=== PATIENT | male | born 1975 | race Caucasian/White ===

== ENCOUNTER 2022-10-14 13:41 | Emergency (ER) | payer MEDICAID, SELFPAY ==
[2022-10-14 13:45] VITALS: BMI 32.3
[2022-10-14 13:49] VITALS: BP 131/105; PULSE 120; RESP 20; TEMP 37.2; O2SAT 98
--- NOTE | 2022-10-14 13:53 | W.ED.PSYCHS ---
HPI - Psych General: Chief Complaint: Psychiatric Symptoms Stated Complaint: SI Time Seen by Provider: 10/14/22 13:53 History of Present Illness: Mr. Morris is a 46-year-old gentleman with reported history of bipolar disorder, anxiety, PTSD presenting to the emergency department for psychiatric evaluation. Apparently he called the crisis center and they told him to come there however he got tired of walking so was sitting on the ground near the road. He denies suicidal or homicidal ideation. He is unsure how best we can help him. He denies hallucinations. Eventually he decided that he just wanted to go to the crisis center and mostly came in by ambulance because he did not want to walk. He denies injuries or other changes in medical health. He endorses alcohol, tobacco, marijuana use. No other specific changes in health, exacerbating, or alleviating factors identified. Onset (ago): day(s) Associated psychiatric symptoms: depression and other Review of Systems General: Reports: 10 or more systems reviewed and unremarkable except in HPI and below PFSH ED PFSH: Medical History Psychiatric care Physical Exam Const: COMMON NORMALS: alert GENERAL APPEARANCE: cooperative and well developed HENMT: COMMON NORMALS: normocephalic and atraumatic HEAD & SCALP: normocephalic and atraumatic Eye: COMMON NORMALS: conjunctivae normal CONJUNCTIVA: Yes conjunctivae normal SCLERA: sclerae normal Neck/C-Spine: COMMON NORMALS: supple GENERAL: Yes trachea midline Resp: COMMON NORMALS: clear to auscultation bilaterally EFFORT & INSPECTION: Yes able to speak in complete sentences AUSCULTATION: clear to auscultation bilaterally Cardio: COMMON NORMALS: regular rate and regular rhythm RATE: regular rate RHYTHM: regular rhythm GI: COMMON NORMALS: Soft to palpation PALPATION: Yes Soft to palpation and No Tenderness to palpation present (GI) Extremity: GENERAL: Yes normal exam except as noted and No edema Neuro: COMMON NORMALS: moves all extremities SENSORIUM/ORIENTATION: Yes alert and No Orientation impaired Psych: COMMON NORMALS: denies hallucinations, denies homicidal ideation and denies suicidal ideation Course Vital Signs: Vital signs: Vital Signs Temperature 98.9 F 10/14/22 13:49 Pulse Rate 110 H 10/14/22 14:37 Respiratory Rate 16 10/14/22 14:37 Blood Pressure 131/105 10/14/22 13:49 Pulse Oximetry 98 10/14/22 14:37 MDM - Psych Medical Decision Making 46-year-old gentleman presenting for psychiatric evaluation. He denies suicidal or homicidal ideation and refused laboratory studies. He expresses desire for discharge. I do not believe that I can hold him against as well based on my assessment and history provided. He plans to go to the crisis center. He understands return precautions and that he is welcome to return as needed. Medical Records I reviewed the patient's medical records. Lab Data I reviewed the patient's lab results. Discharge Plan Discharge Patient Disposition: Home Clinical Impression: Bipolar disorder, Psychiatric complaint Condition: Stable Discharge Orders: Discharge ED (Routine); Ordered 10/14/22 Ordered By: Lionel King Discharge Diet: As Directed Discharge Activity: Limit activity as instructed Patient Instructions: Bipolar Disorder (ED) Activity Restrictions/Additional Instructions: Thank you for visiting the emergency department. You were seen and evaluated for psychiatric concerns. Based on your reported symptoms I offered admission which you are declining at this time. I recommend follow-up with a psychiatric care provider. I also recommend that you establish with a primary care provider. If you are currently using illegal drugs or other substances I recommend that you do not use. Failure to maintain sobriety will likely lead to worsening of underlying psychiatric disorder including or worse. [facility] [phone] If you or someone you care for is experiencing a psychiatric emergency, please call the crisis hotline ([facility]) 24-hours a day, 7 days a week at [phone]. The crisis stabilization center is on the [address] side of the hospital and is open from 11 AM to 9 PM daily for walk-in. Return to the emergency department for suicidal or homicidal thoughts, or anything else that you are concerned about and feel needs emergency department evaluation. Coding Level of Care Code ED [employer]
[2022-10-14 14:37] VITALS: PULSE 110; RESP 16; O2SAT 98
--- NOTE | 2022-10-23 07:22 | DCPLANNER ---
TCM called patient due to no primary care physician - no answer at this time.
== END 2022-10-14 14:40 | disposition home or self-care (01) ==
PROVIDERS: Emergency Provider Emergency Medicine
DX: F31.9 Bipolar disorder, unspecified (principal)
CPT/HCPCS: 99283